=== PATIENT | male | born 1950 | race Caucasian/White ===

== ENCOUNTER 2016-12-19 17:33 | Emergency (ER) | payer OTHER, MEDICARE ==
[~2016-12-19] VITALS: Ht 177.8 cm; Wt 106.0 kg
[~2016-12-19 17:33] MED LIST: AMLODIPINE10 MG OR; AMOXICILLIN500 MG PO; CIPRO XR500 M2 PO; CIPRO500 MG PO; CIPROFLOXACN500 MG PO; FLOMAX0.4 M1 PO; HYTRIN2 MG OR; LISINOPRIL20 MG PO; RANITIDINE150 M1 PO; ZITHROMAX250 MG PO
[2016-12-19 19:05] LABS: HEMATOCRIT 45.3 % (39.0-50.0); HEMOGLOBIN 15.4 g/dl (14.0-18.0); IMMATURE GRANULOCYTES 0.5 % (0.0-1.0); MEAN CELL VOLUME 91.7 fL CALC (80.0-100.0); MEAN CORPUSCULAR HGB 31.2 pG CALC (26.0-32.0); NEUT# 5.25 thou/uL (1.82-7.42); RED BLOOD COUNT 4.94 mill/uL (4.70-6.10); RED CELL DISTRI WIDTH 12.6 % (11.5-15.5)
[2016-12-19 19:23] LABS: ALBUMIN 4.6 g/dL (3.2-5.0); ALKALINE PHOSPHATASE 93 u/l (38-126); ANION GAP 17 (6-22 (CALC)); BILIRUBIN, TOTAL 0.5 mg/dL (0.0-1.4); BUN 20 mg/dL (8-23); BUN/CREATININE RATIO 15 (12-20 (CALC)); CALCIUM 9.6 mg/dL (8.4-10.2); CARBON DIOXIDE 25 mmol/l (22-30); CHLORIDE 105 mmol/l (95-108); CREATININE 1.3 mg/dL (0.7-1.3); GFR 56 ML/MIN (>=60 (CALC)); GFR FOR AFR.AMER. > 60 ML/MIN (>=60 (CALC)); GLUCOSE 84 mg/dL (82-115); POTASSIUM 4.5 mmol/l (3.5-5.1); SGOT/AST 33 u/l (19-48); SGPT/ALT 57 u/l (11-66); SODIUM 143 mmol/l (137-146)
[2016-12-19 20:01] VITALS: BP 153/81
== END 2016-12-19 20:09 | disposition home or self-care (01) | DRG 305 ==
LOC: ED 17:33
PROVIDERS: Emergency Medicine
DX: I10 Essential (primary) hypertension (principal)

== ENCOUNTER 2017-01-23 11:31 | Emergency (ER) | payer MEDICARE ==
[~2017-01-23] VITALS: Ht 177.8 cm; Wt 104.5 kg
[2017-01-23] MEDS ORDERED: KEFLEX500 MG PO (11:39)
[2017-01-23] MEDS ORDERED: HYDROCO/APAP1 TA9 PO (11:46)
[2017-01-23 14:30] VITALS: BP 156/90
== END 2017-01-23 14:38 | disposition home or self-care (01) ==
LOC: ED 11:31
DX: H57.13 Ocular pain, bilateral (principal); R22.0 Localized swelling, mass and lump, head; H02.844 Edema of left upper eyelid

== ENCOUNTER 2017-08-30 14:06 | Emergency (ER) | payer MEDICARE ==
[~2017-08-30] VITALS: Ht 177.8 cm; Wt 103.0 kg
[~2017-08-30 14:06] MED LIST changes: +ALLOPURINOL100 MG PO; +GENTAMICIN0.3 % OD; +HYDROCO/APAP1 TA9 PO; +KEFLEX500 MG PO
[2017-08-30 15:23] LABS: HEMATOCRIT 41.5 % (39.0-50.0); IMMATURE GRANULOCYTES 0.4 % (0.0-1.0); MEAN CELL VOLUME 92.8 fL CALC (80.0-100.0); MEAN CORPUSCULAR HGB 31.3 pG CALC (26.0-32.0); MEAN CORPUSCULAR HGB CONC 33.7 g/L CALC (32.0-36.0); NEUT# 10.75 thou/uL (1.82-7.42); RED BLOOD COUNT 4.47 mill/uL (4.70-6.10); RED CELL DISTRI WIDTH 12.3 % (11.5-15.5)
[2017-08-30 15:34] LABS: INTERNATIONAL NORMALIZED RATIO 0.9 RATIO (0.7-1.3); PROTHROMBIN TIME 10.3 SECONDS (9.0-12.5)
[2017-08-30 15:35] LABS: ANION GAP 18 (6-22 (CALC)); BUN 23 mg/dL (8-23); BUN/CREATININE RATIO 17 (12-20 (CALC)); CARBON DIOXIDE 25 mmol/l (22-30); CHLORIDE 100 mmol/l (95-108); CREATININE 1.3 mg/dL (0.7-1.3); GFR 55 ML/MIN (>=60 (CALC)); GFR FOR AFR.AMER. > 60 ML/MIN (>=60 (CALC)); POTASSIUM 4.6 mmol/l (3.5-5.1); SODIUM 139 mmol/l (137-146)
[2017-08-30] MEDS ORDERED: AMLODIPINE BESYL5 MG PO (16:35)
[2017-08-30] MEDS ORDERED: ATORVASTATIN CA40 MG PO (16:36)
[2017-08-30] MEDS ORDERED: VITAMIN D-32000 UNI1 PO (16:36)
[2017-08-30] MEDS ORDERED: VIAGRA50 MG PO (16:38)
[2017-08-30 17:22] VITALS: BP 129/74
== END 2017-08-30 17:22 | disposition short-term general hospital (02) ==
LOC: ED 14:06
PROVIDERS: Family Medicine
DX: S79.921A Unspecified injury of right thigh, initial encounter (principal); I10 Essential (primary) hypertension; K21.9 Gastro-esophageal reflux disease without esophagitis; M10.9 Gout, unspecified; W17.89XA Other fall from one level to another, initial encounter; Z85.46 Personal history of malignant neoplasm of prostate

== ENCOUNTER 2017-09-03 06:09 | Emergency (ER) | payer MEDICARE ==
[~2017-09-03] VITALS: Ht 177.8 cm; Wt 104.5 kg
[~2017-09-03 06:09] MED LIST changes: +AMLODIPINE BESYL5 MG PO; +ATORVASTATIN CA40 MG PO; +VIAGRA50 MG PO; +VITAMIN D-32000 UNI1 PO
[2017-09-03 06:44] LABS: HEMATOCRIT 37.8 % (39.0-50.0); HEMOGLOBIN 12.8 g/dl (14.0-18.0); IMMATURE GRANULOCYTES 0.6 % (0.0-1.0); MEAN CELL VOLUME 93.1 fL CALC (80.0-100.0); MEAN CORPUSCULAR HGB 31.5 pG CALC (26.0-32.0); MEAN CORPUSCULAR HGB CONC 33.9 g/L CALC (32.0-36.0); NEUT# 7.77 thou/uL (1.82-7.42); RED BLOOD COUNT 4.06 mill/uL (4.70-6.10)
[2017-09-03 06:58] LABS: ANION GAP 18 (6-22 (CALC)); BUN 19 mg/dL (8-23); BUN/CREATININE RATIO 16 (12-20 (CALC)); CARBON DIOXIDE 23 mmol/l (22-30); CHLORIDE 104 mmol/l (95-108); CREATININE 1.2 mg/dL (0.7-1.3); GFR > 60 ML/MIN (>=60 (CALC)); GFR FOR AFR.AMER. > 60 ML/MIN (>=60 (CALC)); POTASSIUM 4.5 mmol/l (3.5-5.1); SODIUM 140 mmol/l (137-146)
[2017-09-03 07:00] LABS: ACT PARTIAL THROMBO TIME 21.7 SECONDS (20.0-32.5); INTERNATIONAL NORMALIZED RATIO 0.9 RATIO (0.7-1.3)
[2017-09-03 09:53] VITALS: BP 109/47
== END 2017-09-03 10:59 | disposition short-term general hospital (02) ==
LOC: ED 06:09
PROVIDERS: Family Medicine
DX: R22.41 Localized swelling, mass and lump, right lower limb (principal); M79.604 Pain in right leg; W17.89XD Other fall from one level to another, subsequent encounter
CPT/HCPCS: Q9967

== ENCOUNTER 2020-05-15 15:04 | Emergency (ER) | payer OTHER, MEDICARE ==
[~2020-05-15] VITALS: Ht 177.8 cm; Wt 104.0 kg
[2020-05-15 16:09] LABS: HEMOGLOBIN 14.6 g/dl (14.0-18.0); IMMATURE GRANULOCYTES 0.6 % (0.0-5.0); MEAN CELL VOLUME 93.7 fL CALC (80.0-100.0); MEAN CORPUSCULAR HGB 30.7 pG CALC (26.0-32.0); MEAN CORPUSCULAR HGB CONC 32.8 g/dL CAL (32.0-36.0); NEUT# 7.51 thou/uL (1.82-7.42); RED BLOOD COUNT 4.75 mill/uL (4.70-6.10); RED CELL DISTRI WIDTH 12.3 % (11.5-15.5)
[2020-05-15 16:11] LABS: HEMATOCRIT 44.5 % (39.0-50.0); URINE BILIRUBIN - DIPSTICK NEGATIVE (NEGATIVE); URINE BLOOD DIPSTICK NEGATIVE (NEGATIVE); URINE COLOR YELLOW; URINE GLUCOSE - DIPSTICK NEGATIVE (NEGATIVE); URINE KETONE NEGATIVE (NEGATIVE); URINE LEUK ESTERASE NEGATIVE (NEGATIVE); URINE NITRITE - DIPSTICK NEGATIVE (Negative); URINE PH 5.5 (4.5-8.0); URINE PROTEIN - DIPSTICK TRACE mg/dL (NEG-TRACE); URINE SPECIFIC GRAVITY >=1.030; URINE UROBILINOGEN - DIPSTICK 0.2 E.U./dL (0.2)
[2020-05-15 16:27] LABS: PROTHROMBIN TIME 9.6 SECONDS (9.0-12.5)
[2020-05-15 16:28] LABS: ALBUMIN 4.6 g/dL (3.2-5.0); ALKALINE PHOSPHATASE 95 u/l (38-126); ANION GAP 13 (6-22 (CALC)); BILIRUBIN, TOTAL 0.7 mg/dL (0.0-1.4); BUN 17 mg/dL (8-23); BUN/CREATININE RATIO 15 (12-20 (CALC)); CARBON DIOXIDE 26 mmol/l (22-30); CHLORIDE 102 mmol/l (95-108); CREATININE 1.2 mg/dL (0.7-1.3); GFR 60 ML/MIN (>=60 (CALC)); GFR FOR AFR.AMER. > 60 ML/MIN (>=60 (CALC)); LIPASE 91 u/l (23-300); POTASSIUM 3.9 mmol/l (3.5-5.1); SGOT/AST 37 u/l (19-48); SODIUM 137 mmol/l (137-146); TOTAL PROTEIN 8.2 g/dL (6.3-8.2)
[2020-05-15] MEDS ORDERED: IBUPROFEN600 MG PO (18:45)
[2020-05-15] MEDS ORDERED: MEDDOSEPAK PO (18:45)
[2020-05-15] MEDS ORDERED: FLEXERIL5 M1 PO (18:45)
[2020-05-15] MEDS ORDERED: HYDROCO/APAP1 TA9 PO ×2 (18:50→18:53)
[2020-05-15 19:08] VITALS: BP 159/82
== END 2020-05-15 19:39 | disposition home or self-care (01) | DRG 999 ==
LOC: ED 15:04
PROVIDERS: Student in an Organized Health Care Education/Training Program
DX: S39.012A Strain of muscle, fascia and tendon of lower back, initial encounter (principal); S06.9X1A Unspecified intracranial injury with loss of consciousness of 30 minutes or less, initial encounter; S30.811A Abrasion of abdominal wall, initial encounter; S80.812A Abrasion, left lower leg, initial encounter; I10 Essential (primary) hypertension; K21.9 Gastro-esophageal reflux disease without esophagitis; M10.9 Gout, unspecified; W11.XXXA Fall on and from ladder, initial encounter; Y93.89 Activity, other specified; Y92.008 Other place in unspecified non-institutional (private) residence as the place of occurrence of the external cause
CPT/HCPCS: Q9967

== ENCOUNTER 2021-01-20 08:54 | Emergency (ER) | payer OTHER, MEDICARE ==
[~2021-01-20] VITALS: Ht 177.8 cm; Wt 98.0 kg
[~2021-01-20 08:54] MED LIST changes: +FLEXERIL5 M1 PO; +IBUPROFEN600 MG PO; +MEDDOSEPAK PO
[2021-01-20 10:24] LABS: HEMOGLOBIN 16.3 g/dl (14.0-18.0); IMMATURE GRANULOCYTES 0.3 % (0.0-5.0); MEAN CELL VOLUME 93.7 fL CALC (80.0-100.0); MEAN CORPUSCULAR HGB 31.2 pG CALC (26.0-32.0); MEAN CORPUSCULAR HGB CONC 33.3 g/dL CAL (32.0-36.0); NEUT# 4.8 thou/uL (1.82-7.42); RED BLOOD COUNT 5.23 mill/uL (4.70-6.10); RED CELL DISTRI WIDTH 12.1 % (11.5-15.5)
[2021-01-20] MEDS ORDERED: HYDROXYZ HCL25 MG PO (10:25)
[2021-01-20] MEDS ORDERED: HYDROCHLOROT25 MG PO (10:26)
[2021-01-20] MEDS ORDERED: LOSARTAN POTAS100 MG PO (10:27)
[2021-01-20 10:43] LABS: ALBUMIN 4.6 g/dL (3.2-5.0); ALKALINE PHOSPHATASE 97 u/l (38-126); ANION GAP 12 (6-22 (CALC)); BILIRUBIN, TOTAL 0.5 mg/dL (0.0-1.4); BUN 14 mg/dL (8-23); BUN/CREATININE RATIO 16 (12-20 (CALC)); CARBON DIOXIDE 26 mmol/l (22-30); CHLORIDE 102 mmol/l (95-108); CREATININE 0.9 mg/dL (0.7-1.3); GFR > 60 ML/MIN (>=60 (CALC)); GFR FOR AFR.AMER. > 60 ML/MIN (>=60 (CALC)); POTASSIUM 4.2 mmol/l (3.5-5.1); SGOT/AST 33 u/l (19-48); SODIUM 136 mmol/l (137-146); TOTAL PROTEIN 8.7 g/dL (6.3-8.2)
[2021-01-20] MEDS ORDERED: ZPAK PO (12:04)
[2021-01-20] MEDS ORDERED: TESSALON PERLE100 MG PO (12:04)
[2021-01-20 12:30] VITALS: BP 186/86
== END 2021-01-20 12:30 | disposition home or self-care (01) | DRG 203 ==
LOC: ED 08:54
DX: J20.9 Acute bronchitis, unspecified (principal); I10 Essential (primary) hypertension; K21.9 Gastro-esophageal reflux disease without esophagitis; M10.9 Gout, unspecified; Z85.46 Personal history of malignant neoplasm of prostate; Z20.822 Contact with and (suspected) exposure to COVID-19

== ENCOUNTER 2022-02-07 16:54 | Emergency (ER) | payer OTHER, MEDICARE ==
[~2022-02-07] VITALS: Ht 177.8 cm; Wt 109.0 kg
[~2022-02-07 16:54] MED LIST changes: +HYDROCHLOROT25 MG PO; +HYDROXYZ HCL25 MG PO; +LOSARTAN POTAS100 MG PO; +TESSALON PERLE100 MG PO; +ZPAK PO
[2022-02-07 19:52] VITALS: BP 163/89
== END 2022-02-07 19:52 | disposition home or self-care (01) | DRG 605 ==
LOC: ED 16:54
DX: S50.12XA Contusion of left forearm, initial encounter (principal); M79.632 Pain in left forearm; M25.512 Pain in left shoulder; V48.0XXA Car driver injured in noncollision transport accident in nontraffic accident, initial encounter

== ENCOUNTER 2022-06-30 07:43 | Emergency (ER) | payer OTHER, MEDICARE ==
[~2022-06-30] VITALS: Ht 177.8 cm; Wt 108.8 kg
[2022-06-30 08:00] VITALS: BP 147/96
[2022-06-30 08:09] VITALS: BP 161/98
[2022-06-30 08:31] VITALS: BP 167/89
[2022-06-30 08:32] LABS: URINE BILIRUBIN - DIPSTICK NEGATIVE (NEGATIVE); URINE BLOOD DIPSTICK NEGATIVE (NEGATIVE); URINE COLOR YELLOW; URINE GLUCOSE - DIPSTICK NEGATIVE (NEGATIVE); URINE KETONE NEGATIVE (NEGATIVE); URINE LEUK ESTERASE NEGATIVE (NEGATIVE); URINE PH 6.5 (4.5-8.0); URINE PROTEIN - DIPSTICK TRACE mg/dL (NEG-TRACE); URINE SPECIFIC GRAVITY 1.025; URINE UROBILINOGEN - DIPSTICK 0.2 E.U./dL (0.2)
[2022-06-30 09:01] VITALS: BP 162/89
[2022-06-30 09:05] LABS: URINE NITRITE - DIPSTICK NEGATIVE (Negative)
[2022-06-30] MEDS ORDERED: AMOX/K CLAV875 M1 PO (09:19)
[2022-06-30] MEDS ORDERED: VENTOLIN HFA108 MCG PO (09:19)
[2022-06-30 09:23] VITALS: BP 162/89
== END 2022-06-30 09:30 | disposition home or self-care (01) | DRG 153 ==
LOC: ED 07:43
PROVIDERS: Family Medicine
DX: J06.9 Acute upper respiratory infection, unspecified (principal); I10 Essential (primary) hypertension; Z85.46 Personal history of malignant neoplasm of prostate; K21.9 Gastro-esophageal reflux disease without esophagitis; Z20.822 Contact with and (suspected) exposure to COVID-19

== ENCOUNTER 2022-10-01 13:44 | Emergency (ER) | payer OTHER, MEDICARE ==
[~2022-10-01] VITALS: Ht 177.8 cm; Wt 108.8 kg
[~2022-10-01 13:44] MED LIST changes: +AMOX/K CLAV875 M1 PO; +VENTOLIN HFA108 MCG PO
[2022-10-01] MEDS ORDERED: PAXLOVID PO (15:19)
[2022-10-01 15:40] VITALS: BP 131/83
== END 2022-10-01 15:45 | disposition home or self-care (01) | DRG 179 ==
LOC: ED 13:44
DX: U07.1 COVID-19 (principal); R50.9 Fever, unspecified; R52 Pain, unspecified; R05.9 Cough, unspecified; I10 Essential (primary) hypertension; M10.9 Gout, unspecified; K21.9 Gastro-esophageal reflux disease without esophagitis